=== PATIENT | female | born 1990 | race Two or more races ===

== ENCOUNTER 2016-09-08 15:12 | Emergency (ER) | payer MEDICAID ==
[~2016-09-08] VITALS: Ht 154.9 cm; Wt 54.4 kg
[2016-09-08] MEDS ORDERED: ALPRAZolam 0.5 MG TAB PO ONE (16:00)
== END 2016-09-08 16:09 | disposition home or self-care (01) ==
LOC: EDBD 15:12 → ER 15:18
DX: F41.9 Anxiety disorder, unspecified (principal)